=== PATIENT | male | born 1965 | race Two or more races ===

== ENCOUNTER 2019-04-14 15:56 | Inpatient (IN) | payer MEDICARE, MEDICAID ==
[~2019-04-14] VITALS: Ht 180.3 cm; Wt 87.5 kg
[2019-04-14] MEDS ORDERED: GABA-529 PO (16:12)
[2019-04-14] MEDS ORDERED: HALO1 PO (16:12)
[2019-04-14 16:55] LABS: BASOPHILS % (AUTO) 0.7 % (0.0-2.0); EOSINOPHILS % (AUTO) 2.7 % (1.0-6.0); HEMATOCRIT 43.8 % (41-53); HEMOGLOBIN 13.9 g/dL (13.5-17.5); LYMPHOCYTES # (AUTO) 2.1 K/uL (1.0-4.8); LYMPHOCYTES % (AUTO) 20.5 % (22.0-44.0); MEAN CORPUSCULAR HEMOGLOBIN 22.4 pg (26.0-34.0); MEAN CORPUSCULAR HGB CONC 31.7 G/dL (31.0-37.0); MEAN CORPUSCULAR VOLUME 71 fL (80-100); MONOCYTES # (AUTO) 0.8 K/uL (0.1-1.0); MONOCYTES % (AUTO) 8.2 % (2.0-9.0); NEUTROPHILS # (AUTO) 6.8 K/uL (1.8-7.7); NEUTROPHILS % (AUTO) 67.9 % (40.0-70.0); PLATELET COUNT (AUTO) 253 K/uL (150-450); RED BLOOD CELL COUNT(AUTO) 6.19 MIL/uL (4.50-5.90); RED CELL DISTRIBUTION WIDTH 14.7 % (11.5-14.5)
[2019-04-14 17:11] LABS: ANION GAP 11 mmol/L (8-16); CALCIUM, TOTAL 9.4 mg/dL (8.8-10.5); CARBON DIOXIDE 27 mmol/L (22-29); CHLORIDE 100 mmol/L (98-107); CREATININE 1.06 mg/dL (0.60-1.30); GLOMERULAR FILTR. RATE CALC > 60 mL/min (>60); GLUCOSE,RANDOM 72 mg/dL (70-110); POTASSIUM 4.2 mmol/L (3.5-5.1); SODIUM SERUM 138 mmol/L (136-145); UREA NITROGEN, BLOOD 28 mg/dL (7-18)
[2019-04-14 17:17] LABS: ALANINE AMINOTRANSFERASE 63 U/L (12-78); ALKALINE PHOSPHATASE 67 U/L (46-116); ASPARTATE AMINOTRANSFERASE 56 U/L (15-37); BILIRUBIN,TOTAL 0.4 mg/dL (0.1-1.0); TOTAL PROTEIN, SERUM 8.3 g/dL (6.4-8.2)
[2019-04-14 18:17] LABS: AMPHET/METH SCREEN,URINE NEGATIVE (NEGATIVE); BARBITURATE SCREEN, URINE NEGATIVE (NEGATIVE); BENZODIAZEPINES SCREEN,URINE NEGATIVE (NEGATIVE); CANNABINOID SCREEN,URINE NEGATIVE (NEGATIVE); COCAINE SCREEN,URINE NEGATIVE (NEGATIVE); METHADONE SCREEN, URINE NEGATIVE (NEGATIVE); OPIATE SCREEN,URINE NEGATIVE (NEGATIVE)
[2019-04-14 18:44] LABS: APPEARANCE,URINE CLEAR (CLEAR); BILIRUBIN,URINE NEGATIVE (NEGATIVE); GLUCOSE, URINE (UA) NEGATIVE (NEGATIVE); KETONES,URINE NEGATIVE (NEGATIVE); LEUKOCYTE ESTERASE ,URINE NEGATIVE (NEGATIVE); NITRATE,URINE NEGATIVE (NEGATIVE); OCCULT BLOOD,URINE NEGATIVE (NEGATIVE); PH,URINE 5.5 (5.0-8.0); PROTEIN,URINE NEGATIVE (NEGATIVE); UROBILINOGEN,URINE 0.2 mg/dL (<=1.0)
[2019-04-14 18:47] LABS: PHENCYCLIDINE SCREEN,URINE NEGATIVE (NEGATIVE)
[2019-04-14 20:45] VITALS: BP 143/78
[2019-04-14] MEDS ORDERED: INFLUENZA VIRUS VACCINE QVS 2019-20 (3YR+)/PF 60 MCG/0.5 ML SYRINGE IM ONE (23:00)
[2019-04-15 08:03] LABS: CHOL/HDL RATIO 3.8 (4.2-7.3); FREE T4 (FREE THYROXINE) 1.09 ng/dL (0.76-1.46); THYROID STIMULATING HORMONE 1.94 uIU/mL (0.36-3.74)
[2019-04-15 08:20] VITALS: BP 135/87
[2019-04-15] MEDS ORDERED: DOCUSATE SODIUM 100 MG CAPSULE PO PRN (09:00)
[2019-04-15] MEDS ORDERED: MAG HYDROX/AL HYDROX/SIMETH ES 30 ML SUSPENSION UDCUP PO PRN (09:00)
[2019-04-15] MEDS ORDERED: LOPERAMIDE HCL 2 MG CAPSULE PO PRN (09:00)
[2019-04-15] MEDS ORDERED: PETROLATUM,WHITE 28 GM JELLY TP PRN (09:00)
[2019-04-15] MEDS ORDERED: IBUPROFEN 600 MG TABLET PO PRN (09:00)
[2019-04-15] MEDS ORDERED: ALBUTEROL SULFATE HFA 90 MCG/PUFF 8 GM INHALER IH PRN (09:00)
[2019-04-15] MEDS ORDERED: BENZOCAINE/MENTHOL LOZENGE MM PRN (09:00)
[2019-04-15] MEDS ORDERED: CloNIDine HCL 0.1 MG TABLET PO PRN (09:00)
[2019-04-15] MEDS ORDERED: OMEPRAZOLE 20 MG CAPSULE PO PRN (09:00)
[2019-04-15] MEDS ORDERED: BACITRACIN 28.4 GM OINTMENT TP PRN (09:00)
[2019-04-15] MEDS ORDERED: ONDANSETRON HCL 4 MG TABLET PO PRN (09:00)
[2019-04-15] MEDS ORDERED: ACETAMINOPHEN 325 MG TABLET PO PRN (09:00)
[2019-04-15] MEDS ORDERED: MAGNESIUM HYDROXIDE SUSPENSION 30 ML UDCUP PO PRN (09:00)
[2019-04-15 16:08] VITALS: BP 128/88
[2019-04-15] MEDS: HALOPERIDOL 5 MG TABLET PO PRN (18:05)
[2019-04-15] MEDS: HALOPERIDOL 10 MG TABLET PO SCH (21:33)
[2019-04-16 00:05] VITALS: BP 130/78
[2019-04-16] MEDS: GABAPENTIN 300 MG CAPSULE PO SCH ×2 (08:25→16:32)
[2019-04-16 08:31] VITALS: BP 129/75
[2019-04-16] MEDS: LORazepam 2 MG TABLET PO PRN (16:32)
[2019-04-16 16:54] VITALS: BP 140/80
[2019-04-16] MEDS: HALOPERIDOL 10 MG TABLET PO SCH (20:49)
[2019-04-17 05:41] VITALS: BP 122/82
[2019-04-17] MEDS: GABAPENTIN 300 MG CAPSULE PO SCH ×2 (08:38→16:42)
[2019-04-17] MEDS: HALOPERIDOL 5 MG TABLET PO PRN (10:22)
[2019-04-17] MEDS: LORazepam 2 MG TABLET PO PRN (10:22)
[2019-04-17 16:28] VITALS: BP 121/82
[2019-04-17] MEDS: HALOPERIDOL 10 MG TABLET PO SCH (20:13)
[2019-04-18 00:17] VITALS: BP 110/68
[2019-04-18] MEDS: HALOPERIDOL 5 MG TABLET PO PRN (05:02)
[2019-04-18] MEDS: LORazepam 2 MG TABLET PO PRN ×2 (05:02→09:21)
[2019-04-18 08:20] VITALS: BP 133/83
[2019-04-18] MEDS: GABAPENTIN 300 MG CAPSULE PO SCH ×2 (09:21→16:40)
[2019-04-18 16:06] VITALS: BP 129/78
[2019-04-18] MEDS: HALOPERIDOL 10 MG TABLET PO SCH (20:45)
[2019-04-19 06:16] VITALS: BP 122/83
[2019-04-19 08:42] VITALS: BP 137/68
[2019-04-19] MEDS: GABAPENTIN 300 MG CAPSULE PO SCH ×2 (09:01→16:44)
[2019-04-19] MEDS: LORazepam 2 MG TABLET PO PRN ×2 (09:24→17:45)
[2019-04-19] MEDS: HALOPERIDOL 5 MG TABLET PO PRN (13:11)
[2019-04-19 16:21] VITALS: BP 130/84
[2019-04-19] MEDS ORDERED: NICOTINE 14 MG/24 HOUR PATCH TD PRN (18:15)
[2019-04-19] MEDS: HALOPERIDOL 10 MG TABLET PO SCH (20:21)
[2019-04-19] MEDS: ZOLPIDEM TARTRATE 10 MG TABLET PO PRN (22:12)
[2019-04-20 00:22] VITALS: BP 137/73
[2019-04-20 08:26] VITALS: BP 139/90
[2019-04-20] MEDS: GABAPENTIN 300 MG CAPSULE PO SCH ×2 (08:34→16:39)
[2019-04-20 16:08] VITALS: BP 137/87
[2019-04-20] MEDS: LORazepam 2 MG TABLET PO PRN (17:31)
[2019-04-20] MEDS: HALOPERIDOL 5 MG TABLET PO PRN (17:31)
[2019-04-20] MEDS: HALOPERIDOL 10 MG TABLET PO SCH (20:21)
[2019-04-20] MEDS: ZOLPIDEM TARTRATE 10 MG TABLET PO PRN (21:31)
[2019-04-21 08:23] VITALS: BP 130/85
[2019-04-21] MEDS: GABAPENTIN 300 MG CAPSULE PO SCH ×2 (09:02→16:22)
[2019-04-21] MEDS: HALOPERIDOL 5 MG TABLET PO PRN (09:02)
[2019-04-21] MEDS: LORazepam 2 MG TABLET PO PRN (09:03)
[2019-04-21] MEDS: BENZTROPINE MESYLATE 2 MG TABLET PO SCH (16:22)
[2019-04-21] MEDS: HALOPERIDOL 10 MG TABLET PO SCH (16:23)
[2019-04-21 16:30] VITALS: BP 118/80
[2019-04-22 00:30] VITALS: BP 128/86
[2019-04-22] MEDS: ZOLPIDEM TARTRATE 10 MG TABLET PO PRN (00:36)
[2019-04-22] MEDS: LORazepam 2 MG TABLET PO PRN ×3 (00:36→20:54)
[2019-04-22] MEDS: HALOPERIDOL 5 MG TABLET PO PRN ×2 (03:55→21:29)
[2019-04-22 08:54] VITALS: BP 112/82
[2019-04-22] MEDS: GABAPENTIN 300 MG CAPSULE PO SCH ×2 (10:05→16:35)
[2019-04-22] MEDS: HALOPERIDOL 10 MG TABLET PO SCH ×2 (10:05→16:35)
[2019-04-22] MEDS: BENZTROPINE MESYLATE 2 MG TABLET PO SCH ×2 (10:05→16:35)
[2019-04-22 16:07] VITALS: BP 119/85
[2019-04-23] VITALS: BP 125/82
[2019-04-23] MEDS: ZOLPIDEM TARTRATE 10 MG TABLET PO PRN (00:01)
[2019-04-23] MEDS: LORazepam 2 MG TABLET PO PRN ×2 (05:40→18:18)
[2019-04-23] MEDS: HALOPERIDOL 5 MG TABLET PO PRN (05:40)
[2019-04-23 08:34] VITALS: BP 138/87
[2019-04-23] MEDS: BENZTROPINE MESYLATE 2 MG TABLET PO SCH ×2 (09:28→16:47)
[2019-04-23] MEDS: HALOPERIDOL 10 MG TABLET PO SCH ×2 (09:28→16:47)
[2019-04-23] MEDS: GABAPENTIN 300 MG CAPSULE PO SCH ×2 (09:28→16:47)
[2019-04-23 17:29] VITALS: BP 143/84
[2019-04-24 01:26] VITALS: BP 120/98
[2019-04-24] MEDS: LORazepam 2 MG TABLET PO PRN ×2 (01:26→14:47)
[2019-04-24] MEDS: ZOLPIDEM TARTRATE 10 MG TABLET PO PRN (01:42)
[2019-04-24] MEDS: HALOPERIDOL 5 MG TABLET PO PRN (01:43)
[2019-04-24 08:19] VITALS: BP 136/67
[2019-04-24] MEDS: GABAPENTIN 300 MG CAPSULE PO SCH ×2 (09:13→17:12)
[2019-04-24] MEDS: HALOPERIDOL 10 MG TABLET PO SCH ×2 (09:13→17:11)
[2019-04-24] MEDS: BENZTROPINE MESYLATE 2 MG TABLET PO SCH ×2 (09:13→17:12)
[2019-04-24 16:09] VITALS: BP 132/81
[2019-04-25 00:11] VITALS: BP 139/62
[2019-04-25] MEDS: HALOPERIDOL 5 MG TABLET PO PRN ×3 (00:36→20:50)
[2019-04-25 08:11] VITALS: BP 140/83
[2019-04-25] MEDS: GABAPENTIN 300 MG CAPSULE PO SCH ×2 (08:57→16:30)
[2019-04-25] MEDS: HALOPERIDOL 10 MG TABLET PO SCH ×2 (08:57→16:30)
[2019-04-25] MEDS: BENZTROPINE MESYLATE 2 MG TABLET PO SCH ×2 (08:57→16:30)
[2019-04-25 16:14] VITALS: BP 136/90
[2019-04-25] MEDS ORDERED: ZOLPIDEM TARTRATE 10 MG TABLET PO PRN (20:15)
[2019-04-25] MEDS: LORazepam 2 MG TABLET PO PRN (20:50)
[2019-04-26 05:09] VITALS: BP 135/77
[2019-04-26 08:13] VITALS: BP 130/81
[2019-04-26] MEDS: BENZTROPINE MESYLATE 2 MG TABLET PO SCH ×2 (09:05→17:49)
[2019-04-26] MEDS: HALOPERIDOL 10 MG TABLET PO SCH ×2 (09:05→17:49)
[2019-04-26] MEDS: GABAPENTIN 300 MG CAPSULE PO SCH ×2 (09:05→17:49)
[2019-04-26] MEDS: HALOPERIDOL 5 MG TABLET PO PRN (12:39)
[2019-04-26] MEDS: LORazepam 2 MG TABLET PO PRN ×2 (12:39→17:54)
[2019-04-26 16:56] VITALS: BP 138/81
[2019-04-26] MEDS ORDERED: HALOPERIDOL LACTATE 5 MG/ML VIAL IM ONE (19:15)
[2019-04-26] MEDS ORDERED: LORazepam 2 MG/ML VIAL IM ONE (19:15)
[2019-04-26] MEDS ORDERED: DiphenhydrAMINE HCL 50 MG/ML VIAL IM ONE (19:15)
[2019-04-27] MEDS: LORazepam 2 MG TABLET PO PRN (05:58)
[2019-04-27] MEDS: HALOPERIDOL 5 MG TABLET PO PRN (05:59)
[2019-04-27 06:10] VITALS: BP 121/67
[2019-04-27 08:25] VITALS: BP 146/64
[2019-04-27] MEDS: BENZTROPINE MESYLATE 2 MG TABLET PO SCH ×2 (08:52→16:31)
[2019-04-27] MEDS: HALOPERIDOL 10 MG TABLET PO SCH ×2 (08:52→16:31)
[2019-04-27] MEDS: GABAPENTIN 300 MG CAPSULE PO SCH ×2 (08:53→16:30)
[2019-04-27 16:00] VITALS: BP 118/81
[2019-04-28 03:00] VITALS: BP 139/83
[2019-04-28] MEDS: LORazepam 2 MG TABLET PO PRN ×3 (03:03→13:15)
[2019-04-28] MEDS: HALOPERIDOL 5 MG TABLET PO PRN ×2 (03:03→13:15)
[2019-04-28 08:02] VITALS: BP 128/72
[2019-04-28] MEDS: HALOPERIDOL 10 MG TABLET PO SCH ×2 (08:15→16:27)
[2019-04-28] MEDS: BENZTROPINE MESYLATE 2 MG TABLET PO SCH ×2 (08:15→16:27)
[2019-04-28] MEDS: GABAPENTIN 300 MG CAPSULE PO SCH ×2 (08:15→16:27)
[2019-04-28 16:00] VITALS: BP 121/92
[2019-04-29 01:56] VITALS: BP 117/69
[2019-04-29 08:12] VITALS: BP 140/74
[2019-04-29] MEDS: GABAPENTIN 300 MG CAPSULE PO SCH (08:40)
[2019-04-29] MEDS: HALOPERIDOL 10 MG TABLET PO SCH (08:40)
[2019-04-29] MEDS: BENZTROPINE MESYLATE 2 MG TABLET PO SCH (08:40)
[2019-04-29] MEDS ORDERED: BENZ2TAB10 PO (10:11)
[2019-04-29] MEDS ORDERED: GABA-531 PO (10:12)
[2019-04-29] MEDS ORDERED: HALO10 PO (10:12)
== END 2019-04-29 11:15 | disposition home or self-care (01) | DRG 885 ==
LOC: EMS 16:00 → EDBD 16:00 → B2X 18:35 → UNDOADMIN 18:35 → B2X 04-15 13:56
PROVIDERS: ADMIT Psychiatry & Neurology Child & Adolescent Psychiatry; ATTEND Psychiatry & Neurology Child & Adolescent Psychiatry
DX: F25.1 Schizoaffective disorder, depressive type (principal); R45.851 Suicidal ideations; F41.9 Anxiety disorder, unspecified; G47.00 Insomnia, unspecified; K59.00 Constipation, unspecified; F19.10 Other psychoactive substance abuse, uncomplicated; Z53.29 Procedure and treatment not carried out because of patient's decision for other reasons; Z59.0 Homelessness; Z79.899 Other long term (current) drug therapy
CPT/HCPCS: 84439; 84443; G0480; J1200; J1630; J2060

== ENCOUNTER 2019-06-06 14:07 | Inpatient (IN) | payer MEDICARE, MEDICAID ==
[~2019-06-06] VITALS: Ht 180.3 cm; Wt 86.8 kg
[~2019-06-06 14:07] MED LIST: BENZ2TAB10 PO; GABA-531 PO; HALO10 PO
[2019-06-06 16:00] LABS: BASOPHILS % (AUTO) 1.4 % (0.0-2.0); EOSINOPHILS % (AUTO) 4.9 % (1.0-6.0); HEMATOCRIT 36.9 % (41-53); HEMOGLOBIN 11.7 g/dL (13.5-17.5); LYMPHOCYTES # (AUTO) 1.5 K/uL (1.0-4.8); LYMPHOCYTES % (AUTO) 21.2 % (22.0-44.0); MEAN CORPUSCULAR HEMOGLOBIN 22.1 pg (26.0-34.0); MEAN CORPUSCULAR HGB CONC 31.6 G/dL (31.0-37.0); MEAN CORPUSCULAR VOLUME 70 fL (80-100); MONOCYTES # (AUTO) 0.7 K/uL (0.1-1.0); NEUTROPHILS # (AUTO) 4.5 K/uL (1.8-7.7); NEUTROPHILS % (AUTO) 62.5 % (40.0-70.0); PLATELET COUNT (AUTO) 409 K/uL (150-450); RED BLOOD CELL COUNT(AUTO) 5.28 MIL/uL (4.50-5.90); RED CELL DISTRIBUTION WIDTH 16.5 % (11.5-14.5)
[2019-06-06 16:08] LABS: ANION GAP 5 mmol/L (8-16); CARBON DIOXIDE 28 mmol/L (22-29); CHLORIDE 104 mmol/L (98-107); CREATININE 0.96 mg/dL (0.60-1.30); GLOMERULAR FILTR. RATE CALC > 60 mL/min (>60); GLUCOSE,RANDOM 94 mg/dL (70-110); POTASSIUM 4.1 mmol/L (3.5-5.1); SODIUM SERUM 137 mmol/L (136-145); UREA NITROGEN, BLOOD 22 mg/dL (7-18)
[2019-06-06 16:14] LABS: ALANINE AMINOTRANSFERASE 69 U/L (12-78); ALBUMIN 3.2 g/dL (3.4-5.0); ALKALINE PHOSPHATASE 50 U/L (46-116); ASPARTATE AMINOTRANSFERASE 47 U/L (15-37); BILIRUBIN,TOTAL 0.2 mg/dL (0.1-1.0); TOTAL PROTEIN, SERUM 7.1 g/dL (6.4-8.2)
[2019-06-07 00:19] VITALS: BP 129/75
[2019-06-07] MEDS ORDERED: INFLUENZA VIRUS VACCINE QVS 2019-20 (3YR+)/PF 60 MCG/0.5 ML SYRINGE IM ONE (02:15)
[2019-06-07] MEDS ORDERED: LOPERAMIDE HCL 2 MG CAPSULE PO PRN (07:00)
[2019-06-07] MEDS ORDERED: BENZOCAINE/MENTHOL LOZENGE MM PRN (07:00)
[2019-06-07] MEDS ORDERED: IBUPROFEN 600 MG TABLET PO PRN (07:00)
[2019-06-07] MEDS ORDERED: CloNIDine HCL 0.1 MG TABLET PO PRN (07:00)
[2019-06-07] MEDS ORDERED: PETROLATUM,WHITE 28 GM JELLY TP PRN (07:00)
[2019-06-07] MEDS ORDERED: OMEPRAZOLE 20 MG CAPSULE PO PRN (07:00)
[2019-06-07] MEDS ORDERED: ALBUTEROL SULFATE HFA 90 MCG/PUFF 8 GM INHALER IH PRN (07:00)
[2019-06-07] MEDS ORDERED: DOCUSATE SODIUM 100 MG CAPSULE PO PRN (07:00)
[2019-06-07] MEDS ORDERED: ACETAMINOPHEN 325 MG TABLET PO PRN (07:00)
[2019-06-07] MEDS ORDERED: MAG HYDROX/AL HYDROX/SIMETH ES 30 ML SUSPENSION UDCUP PO PRN (07:00)
[2019-06-07] MEDS ORDERED: MAGNESIUM HYDROXIDE SUSPENSION 30 ML UDCUP PO PRN (07:00)
[2019-06-07] MEDS ORDERED: ONDANSETRON HCL 4 MG TABLET PO PRN (07:00)
[2019-06-07] MEDS ORDERED: BACITRACIN 28.4 GM OINTMENT TP PRN (07:00)
[2019-06-07 08:08] VITALS: BP 128/79
[2019-06-07] MEDS: HALOPERIDOL 5 MG TABLET PO PRN (09:30)
[2019-06-07] MEDS: LORazepam 2 MG TABLET PO PRN (09:30)
[2019-06-07 16:29] VITALS: BP 110/75
[2019-06-07] MEDS: HALOPERIDOL 5 MG TABLET PO SCH (20:57)
[2019-06-08] MEDS: BENZTROPINE MESYLATE 1 MG TABLET PO SCH ×2 (08:41→16:34)
[2019-06-08] MEDS: GABAPENTIN 300 MG CAPSULE PO SCH ×3 (08:41→16:34)
[2019-06-08 08:49] VITALS: BP 112/83
[2019-06-08] MEDS: HALOPERIDOL 5 MG TABLET PO PRN (13:36)
[2019-06-08 16:06] VITALS: BP 142/88
[2019-06-08] MEDS: BACITRACIN 28.4 GM OINTMENT TP SCH (16:34)
[2019-06-08] MEDS: HALOPERIDOL 5 MG TABLET PO SCH (20:32)
[2019-06-09] MEDS: LORazepam 2 MG TABLET PO PRN (01:08)
[2019-06-09] MEDS: HALOPERIDOL 5 MG TABLET PO PRN (01:08)
[2019-06-09] MEDS: ZOLPIDEM TARTRATE 10 MG TABLET PO PRN ×2 (01:08→21:11)
[2019-06-09 08:09] VITALS: BP 118/82
[2019-06-09] MEDS: GABAPENTIN 300 MG CAPSULE PO SCH ×3 (08:43→16:28)
[2019-06-09] MEDS: BENZTROPINE MESYLATE 1 MG TABLET PO SCH ×2 (08:44→16:28)
[2019-06-09] MEDS: BACITRACIN 28.4 GM OINTMENT TP SCH ×2 (08:44→16:29)
[2019-06-09 16:06] VITALS: BP 138/94
[2019-06-09] MEDS: HALOPERIDOL 5 MG TABLET PO SCH (20:29)
[2019-06-10 05:55] VITALS: BP 138/79
[2019-06-10] MEDS: GABAPENTIN 300 MG CAPSULE PO SCH ×3 (08:09→16:56)
[2019-06-10] MEDS: BENZTROPINE MESYLATE 1 MG TABLET PO SCH ×2 (08:09→16:56)
[2019-06-10] MEDS: BACITRACIN 28.4 GM OINTMENT TP SCH ×2 (08:12→16:57)
[2019-06-10 08:37] VITALS: BP 139/90
[2019-06-10] MEDS: HALOPERIDOL 5 MG TABLET PO PRN (09:03)
[2019-06-10 16:02] VITALS: BP 135/90
[2019-06-10] MEDS: HALOPERIDOL 5 MG TABLET PO SCH (20:29)
[2019-06-10] MEDS: ZOLPIDEM TARTRATE 10 MG TABLET PO PRN (20:56)
[2019-06-11 00:57] VITALS: BP 138/94
[2019-06-11 00:59] VITALS: BP 138/94
[2019-06-11 08:04] VITALS: BP 122/66
[2019-06-11] MEDS: BENZTROPINE MESYLATE 1 MG TABLET PO SCH ×2 (08:42→16:28)
[2019-06-11] MEDS: GABAPENTIN 300 MG CAPSULE PO SCH ×3 (08:42→16:28)
[2019-06-11] MEDS: BACITRACIN 28.4 GM OINTMENT TP SCH ×2 (09:54→16:28)
[2019-06-11 16:02] VITALS: BP 126/90
[2019-06-11] MEDS: HALOPERIDOL 5 MG TABLET PO SCH (20:36)
[2019-06-12 00:42] VITALS: BP 122/81
[2019-06-12 08:08] VITALS: BP 110/90
[2019-06-12] MEDS: BENZTROPINE MESYLATE 1 MG TABLET PO SCH ×2 (08:10→16:09)
[2019-06-12] MEDS: GABAPENTIN 300 MG CAPSULE PO SCH ×3 (08:10→16:09)
[2019-06-12] MEDS: BACITRACIN 28.4 GM OINTMENT TP SCH ×2 (09:32→16:10)
[2019-06-12 16:02] VITALS: BP 130/85
[2019-06-12] MEDS: HALOPERIDOL 5 MG TABLET PO SCH (20:35)
[2019-06-13 00:03] VITALS: BP 136/71
[2019-06-13] MEDS: MULTIVITAMINS WITH MINERALS, THERAPEUTIC TABLET PO SCH (08:12)
[2019-06-13] MEDS: BACITRACIN 28.4 GM OINTMENT TP SCH ×2 (08:13→16:38)
[2019-06-13] MEDS: BENZTROPINE MESYLATE 1 MG TABLET PO SCH ×2 (08:13→16:38)
[2019-06-13] MEDS: GABAPENTIN 300 MG CAPSULE PO SCH ×3 (08:13→16:38)
[2019-06-13 08:17] VITALS: BP 139/80
[2019-06-13] MEDS: LORazepam 2 MG TABLET PO PRN (10:16)
[2019-06-13 16:02] VITALS: BP 123/74
[2019-06-13] MEDS: HALOPERIDOL 5 MG TABLET PO SCH (20:35)
[2019-06-14 05:06] VITALS: BP 104/71
[2019-06-14 08:24] VITALS: BP 107/67
[2019-06-14] MEDS: BENZTROPINE MESYLATE 1 MG TABLET PO SCH ×2 (08:25→16:08)
[2019-06-14] MEDS: MULTIVITAMINS WITH MINERALS, THERAPEUTIC TABLET PO SCH (08:25)
[2019-06-14] MEDS: GABAPENTIN 300 MG CAPSULE PO SCH ×3 (08:25→16:08)
[2019-06-14] MEDS: BACITRACIN 28.4 GM OINTMENT TP SCH ×2 (08:26→17:19)
[2019-06-14 16:06] VITALS: BP 130/85
[2019-06-14] MEDS: LORazepam 2 MG TABLET PO PRN (17:19)
[2019-06-14] MEDS: HALOPERIDOL 5 MG TABLET PO SCH (20:16)
[2019-06-14] MEDS: ZOLPIDEM TARTRATE 10 MG TABLET PO PRN (20:57)
[2019-06-15] MEDS: GABAPENTIN 300 MG CAPSULE PO SCH ×3 (08:21→16:09)
[2019-06-15] MEDS: BENZTROPINE MESYLATE 1 MG TABLET PO SCH ×2 (08:22→16:09)
[2019-06-15] MEDS: MULTIVITAMINS WITH MINERALS, THERAPEUTIC TABLET PO SCH (08:22)
[2019-06-15] MEDS: LORazepam 2 MG TABLET PO PRN (08:25)
[2019-06-15] MEDS: HALOPERIDOL 5 MG TABLET PO PRN (08:25)
[2019-06-15] MEDS: BACITRACIN 28.4 GM OINTMENT TP SCH ×2 (08:28→16:11)
[2019-06-15 08:30] VITALS: BP 105/62
[2019-06-15 16:02] VITALS: BP 134/84
[2019-06-15] MEDS: HALOPERIDOL 5 MG TABLET PO SCH (20:10)
[2019-06-16] MEDS: HALOPERIDOL 5 MG TABLET PO PRN (04:01)
[2019-06-16] MEDS: LORazepam 2 MG TABLET PO PRN ×3 (04:01→16:27)
[2019-06-16 08:04] VITALS: BP 120/77
[2019-06-16] MEDS: GABAPENTIN 300 MG CAPSULE PO SCH ×3 (08:59→16:19)
[2019-06-16] MEDS: BENZTROPINE MESYLATE 1 MG TABLET PO SCH ×2 (08:59→16:19)
[2019-06-16] MEDS: MULTIVITAMINS WITH MINERALS, THERAPEUTIC TABLET PO SCH (08:59)
[2019-06-16] MEDS: BACITRACIN 28.4 GM OINTMENT TP SCH ×2 (09:00→16:27)
[2019-06-16] MEDS ORDERED: COLLOIDAL OATMEAL PACKET TP SCH (09:00)
[2019-06-16 16:05] VITALS: BP 125/74
[2019-06-16] MEDS: HALOPERIDOL 5 MG TABLET PO SCH (20:33)
[2019-06-17] MEDS ORDERED: ZOLPIDEM TARTRATE 10 MG TABLET PO PRN (01:45)
[2019-06-17] MEDS: HALOPERIDOL 5 MG TABLET PO PRN (02:50)
[2019-06-17] MEDS: LORazepam 2 MG TABLET PO PRN ×2 (02:51→16:10)
[2019-06-17] MEDS: MULTIVITAMINS WITH MINERALS, THERAPEUTIC TABLET PO SCH (08:14)
[2019-06-17] MEDS: GABAPENTIN 300 MG CAPSULE PO SCH ×3 (08:14→16:30)
[2019-06-17] MEDS: BENZTROPINE MESYLATE 1 MG TABLET PO SCH ×2 (08:14→16:29)
[2019-06-17] MEDS: BACITRACIN 28.4 GM OINTMENT TP SCH ×2 (08:16→16:30)
[2019-06-17 08:18] VITALS: BP 135/84
[2019-06-17 16:02] VITALS: BP 131/80
[2019-06-17] MEDS: HALOPERIDOL 5 MG TABLET PO SCH (20:32)
[2019-06-18] MEDS: BENZTROPINE MESYLATE 1 MG TABLET PO SCH ×2 (08:04→16:29)
[2019-06-18] MEDS: MULTIVITAMINS WITH MINERALS, THERAPEUTIC TABLET PO SCH (08:04)
[2019-06-18] MEDS: BACITRACIN 28.4 GM OINTMENT TP SCH (08:04)
[2019-06-18] MEDS: GABAPENTIN 300 MG CAPSULE PO SCH ×3 (08:04→16:29)
[2019-06-18 08:11] VITALS: BP 132/74
[2019-06-18] MEDS: LORazepam 2 MG TABLET PO PRN (12:20)
[2019-06-18] MEDS: HALOPERIDOL 5 MG TABLET PO PRN (12:21)
[2019-06-18] MEDS ORDERED: BENZ1TAB10 PO (15:35)
[2019-06-18] MEDS ORDERED: GABA-531 PO (15:35)
[2019-06-18] MEDS ORDERED: HALO10 PO (15:35)
[2019-06-18 16:02] VITALS: BP 133/84
== END 2019-06-18 17:55 | disposition home or self-care (01) | DRG 885 ==
LOC: EMS 14:11 → B2X 20:30 → EMS 23:39
PROVIDERS: ADMIT Psychiatry & Neurology Psychiatry; ATTEND Psychiatry & Neurology Psychiatry
DX: F20.0 Paranoid schizophrenia (principal); F17.210 Nicotine dependence, cigarettes, uncomplicated; G47.00 Insomnia, unspecified; K59.00 Constipation, unspecified; Z59.0 Homelessness; Z28.21 Immunization not carried out because of patient refusal
CPT/HCPCS: G0480

== ENCOUNTER 2020-02-29 16:09 | Emergency (ER) | payer MEDICARE, MEDICAID ==
[~2020-02-29] VITALS: Ht 177.8 cm; Wt 73.6 kg
[~2020-02-29 16:09] MED LIST changes: +BENZ1TAB10 PO; -BENZ2TAB10 PO; +CEPH-582 PO; +GABA-1181 PO; -GABA-531 PO; +SULF1TAB42 PO
[2020-02-29 17:02] LABS: BASOPHILS % (AUTO) 0.8 % (0.0-2.0); HEMATOCRIT 42.5 % (41-53); HEMOGLOBIN 13.8 g/dL (13.5-17.5); LYMPHOCYTES # (AUTO) 2.1 K/uL (1.0-4.8); LYMPHOCYTES % (AUTO) 19.1 % (22.0-44.0); MEAN CORPUSCULAR HEMOGLOBIN 22.1 pg (26.0-34.0); MEAN CORPUSCULAR HGB CONC 32.4 G/dL (31.0-37.0); MEAN CORPUSCULAR VOLUME 68 fL (80-100); MONOCYTES # (AUTO) 0.6 K/uL (0.1-1.0); MONOCYTES % (AUTO) 5.7 % (2.0-9.0); NEUTROPHILS # (AUTO) 7.7 K/uL (1.8-7.7); NEUTROPHILS % (AUTO) 71.4 % (40.0-70.0); PLATELET COUNT (AUTO) 323 K/uL (150-450); RED BLOOD CELL COUNT(AUTO) 6.22 MIL/uL (4.50-5.90); RED CELL DISTRIBUTION WIDTH 18.6 % (11.5-14.5)
[2020-02-29 17:13] LABS: ANION GAP 7 mmol/L (8-16); CALCIUM, TOTAL 9.4 mg/dL (8.8-10.5); CARBON DIOXIDE 28 mmol/L (22-29); CHLORIDE 101 mmol/L (98-107); CREATININE 1.01 mg/dL (0.60-1.30); GLOMERULAR FILTR. RATE CALC > 60 mL/min (>60); GLUCOSE,RANDOM 98 mg/dL (70-110); POTASSIUM 3.9 mmol/L (3.5-5.1); SODIUM SERUM 136 mmol/L (136-145); UREA NITROGEN, BLOOD 12 mg/dL (7-18)
[2020-02-29 17:19] LABS: ALANINE AMINOTRANSFERASE 39 U/L (12-78); ALBUMIN 3.8 g/dL (3.4-5.0); ALKALINE PHOSPHATASE 67 U/L (46-116); ASPARTATE AMINOTRANSFERASE 31 U/L (15-37); BILIRUBIN,TOTAL 0.4 mg/dL (0.1-1.0); TOTAL PROTEIN, SERUM 8.3 g/dL (6.4-8.2)
[2020-02-29 17:33] LABS: AMPHET/METH SCREEN,URINE NEGATIVE (NEGATIVE); BARBITURATE SCREEN, URINE NEGATIVE (NEGATIVE); BENZODIAZEPINES SCREEN,URINE NEGATIVE (NEGATIVE); CANNABINOID SCREEN,URINE NEGATIVE (NEGATIVE); COCAINE SCREEN,URINE NEGATIVE (NEGATIVE); METHADONE SCREEN, URINE NEGATIVE (NEGATIVE); OPIATE SCREEN,URINE NEGATIVE (NEGATIVE)
[2020-02-29 17:45] LABS: PHENCYCLIDINE SCREEN,URINE NEGATIVE (NEGATIVE)
[2020-02-29 18:22] LABS: COVID AG,FIA SOURCE NASOPHARYNGEAL
[2020-03-01 12:45] VITALS: BP 111/63
== END 2020-03-01 13:30 | disposition home or self-care (01) ==
LOC: EMS 16:09
DX: F20.9 Schizophrenia, unspecified (principal); F17.210 Nicotine dependence, cigarettes, uncomplicated; F12.90 Cannabis use, unspecified, uncomplicated; F19.90 Other psychoactive substance use, unspecified, uncomplicated; F31.9 Bipolar disorder, unspecified; I10 Essential (primary) hypertension; Z20.828 Contact with and (suspected) exposure to other viral communicable diseases
CPT/HCPCS: 36415; 80053; 80307; 85025; 87426; 99285; G0480